=== PATIENT | female | born 1990 ===

== ENCOUNTER 2023-07-05 17:00 | Outpatient (RCR) | payer OTHER, SELFPAY | END 2023-08-07 10:39 | disposition home or self-care (01) | LOC: HO.PT 17:00 | PROVIDERS: PCP Student in an Organized Health Care Education/Training Program; Visit Provider Student in an Organized Health Care Education/Training Program | DX: R10.2 Pelvic and perineal pain (principal) | CPT/HCPCS: 97110; 97140; 97162 ==